=== PATIENT | female | born 1975 | race Caucasian/White ===

== ENCOUNTER 2020-09-08 09:37 | Outpatient (CLI) | payer BC | END 2020-09-08 09:38 | disposition home or self-care (01) | LOC: CSHMAMMO 09:37 | PROVIDERS: ATTEND Family Medicine | DX: Z12.31 Encounter for screening mammogram for malignant neoplasm of breast (principal) | CPT/HCPCS: 77063; 77067 ==

== ENCOUNTER 2022-09-06 07:35 | Outpatient (CLI) | payer BC | END 2022-09-06 07:36 | disposition home or self-care (01) | LOC: CSHCT 07:35 | PROVIDERS: ATTEND Internal Medicine Gastroenterology | DX: K62.9 Disease of anus and rectum, unspecified (principal); K76.9 Liver disease, unspecified; N85.9 Noninflammatory disorder of uterus, unspecified; N83.8 Other noninflammatory disorders of ovary, fallopian tube and broad ligament | CPT/HCPCS: 71260; 74177 ==

== ENCOUNTER 2022-11-09 07:37 | Outpatient (CLI) | payer BC ==
[2022-11-09] MEDS ORDERED: Iopamidol 300 61% 100 ML VIAL FS ONE (09:18)
== END 2022-11-09 07:38 | disposition home or self-care (01) ==
LOC: CSHCT 07:37
PROVIDERS: ATTEND Internal Medicine
DX: R10.2 Pelvic and perineal pain (principal); C20 Malignant neoplasm of rectum; N83.01 Follicular cyst of right ovary; K76.9 Liver disease, unspecified; R16.1 Splenomegaly, not elsewhere classified
CPT/HCPCS: 74177; Q9967